=== PATIENT | female | born 1990 | race African-American/Black ===

== ENCOUNTER 2017-12-11 17:04 | Emergency (ER) | payer MEDICAID ==
[~2017-12-11] VITALS: Ht 154.9 cm; Wt 53.1 kg
[2017-12-11 19:13] VITALS: BP 145/88
[2017-12-11] MEDS ORDERED: LIDOCAINE 1%HCL (LOCAL ANESTH) 10 ML MDV ONE (19:27)
[2017-12-11] MEDS ORDERED: cefTRIAXone SOD 1,000 MG VL IM ONE (19:30)
[2017-12-11] MEDS ORDERED: DERMOPLAST 60ML BOTTLE TOP ONE (19:30)
[2017-12-11] MEDS ORDERED: SILVER SULFADIAZINE 1 % TOPICAL CREAM 50GM TOP ONE (19:30)
== END 2017-12-11 20:24 | disposition home or self-care (01) ==
LOC: ER 17:13
DX: T22.211A Burn of second degree of right forearm, initial encounter (principal); X08.8XXA Exposure to other specified smoke, fire and flames, initial encounter; Y93.89 Activity, other specified; Y99.8 Other external cause status; Y92.89 Other specified places as the place of occurrence of the external cause
CPT/HCPCS: 16020; 96372; 99284; J0696; J2001